=== PATIENT | male | born 1975 | race Caucasian/White ===

== ENCOUNTER → 2020-09-15 | Outpatient (CLI) | payer OTHER ==
[2020-09-15 15:59] LABS: RED BLOOD COUNT 4.89 M/UL (4.20-5.50)
[2020-09-15 16:20] LABS: BUN/CREATININE RATIO 16 (0-10)
[2020-09-16 09:14] LABS: HBSAG SCREEN Negative (Negative); HEP A AB, IGM Negative (Negative); HEP B CORE AB, IGM Negative (Negative); HEP B CORE AB, TOT Positive (Negative); HIV SCREEN 4TH GENERATION WRFX Non Reactive (Non Reactive); RPR Non Reactive (Non Reactive)
[2020-09-19 23:11] LABS: ALT (SGPT) P5P 127 IU/L (0-55); APOLIPOPROTEIN A-1 120 mg/dL (101-178); BILIRUBIN, TOTAL 0.2 mg/dL (0.0-1.2); FIBROSIS SCORE 0.15 (0.00-0.21); GGT 20 IU/L (0-65); HAPTOGLOBIN 86 mg/dL (23-355); NECROINFLAMMAT ACTIVITY GRADE A2-A3 (.); NECROINFLAMMAT ACTIVITY SCORE 0.61 (0.00-0.17)
[2020-09-21 10:16] LABS: HCV AB >11.0 (0.0-0.9); HCV LOG10 7.274 (.); HCV RNA (INTERNATIONAL UNITS) 18800000 IU/mL (.); HEPATITIS C GENOTYPE 3 (.); HEPATITIS C QUANTITATION See Final Results IU/mL (.)
== END ==
LOC: LAB 14:27
PROVIDERS: Family Medicine
DX: B18.2 Chronic viral hepatitis C (principal)
CPT/HCPCS: 36415; 80053; 81596; 82172; 82247; 82977; 83010; 84460; 85025; 85610; 86592; 86704; 86705; 86706; 86708; 86709; 86803; 87340; 87389